=== PATIENT | female | born 1970 | race African-American/Black ===

== ENCOUNTER 2018-08-09 16:20 | Emergency (ER) | payer MEDICAID ==
[~2018-08-09] VITALS: Ht 170.2 cm; Wt 68.0 kg
[~2018-08-09 16:20] MED LIST: DILAUDID; OMEP20CA4 PO; TRAM50TA PO; ZOFRAN
[2018-08-09 16:23] VITALS: BP 160/99
== END 2018-08-09 18:36 | disposition left against medical advice (07) ==
LOC: ER 16:50
DX: M54.9 Dorsalgia, unspecified (principal); Z53.21 Procedure and treatment not carried out due to patient leaving prior to being seen by health care provider

== ENCOUNTER 2018-08-13 02:34 | Emergency (ER) | payer MEDICAID ==
[~2018-08-13] VITALS: Ht 170.2 cm; Wt 69.0 kg
[2018-08-13] MEDS ORDERED: KETOROLAC 15MG/ML VIAL IM ONE (06:45)
[2018-08-13 07:07] LABS: CLARITY URINE CLEAR (CLEAR); COLOR URINE YELLOW (YELLOW); KETONES URINE NEGATIVE (NEGATIVE); LEUKOCYTE ESTERASE URINE TRACE (NEGATIVE); NITRITE URINE NEGATIVE (NEGATIVE); OCCULT BLOOD URINE 1+ (NEGATIVE); PH URINE 6.5 (4.5-8.0); PROTEIN URINE NEGATIVE (NEGATIVE); SPECIFIC GRAVITY URINE 1.015 (1.005-1.030); UROBILINOGEN URINE 0.2 E.U./dL (0.2-1.0)
[2018-08-13 07:13] VITALS: BP 150/94
[2018-08-13] MEDS ORDERED: CEFTRIAXONE SODIUM 250 MG/VIAL IM ONE (08:30)
[2018-08-13] MEDS ORDERED: DOXYCYCLINE HYCLATE 100MG CAPSULE PO ONE (08:30)
[2018-08-15 08:19] LABS: CHLAMYDIA TRACHOMATIS NAA Positive (Negative); NEISSERIA GONORRHOEAE NAA Negative (Negative)
== END 2018-08-13 09:11 | disposition home or self-care (01) ==
LOC: ER 02:34
DX: H92.02 Otalgia, left ear (principal); N39.0 Urinary tract infection, site not specified; A64 Unspecified sexually transmitted disease; R03.0 Elevated blood-pressure reading, without diagnosis of hypertension; Z88.5 Allergy status to narcotic agent; Z88.8 Allergy status to other drugs, medicaments and biological substances; Z91.041 Radiographic dye allergy status
CPT/HCPCS: 81003; 81025; 87491; 87591; 96372; 99283; J1885; Z7610; J0696

== ENCOUNTER 2018-11-27 14:50 | Emergency (ER) | payer MEDICAID ==
[~2018-11-27] VITALS: Ht 167.6 cm; Wt 70.0 kg
[2018-11-27 15:20] VITALS: BP 141/87
== END 2018-11-27 17:49 | disposition left against medical advice (07) ==
LOC: ER 14:50
DX: Z53.21 Procedure and treatment not carried out due to patient leaving prior to being seen by health care provider (principal)